=== PATIENT | female | born 1990 | race Hispanic/Latino ===

== ENCOUNTER 2024-10-14 19:10 | Emergency (ER) | payer MEDICAID ==
[~2024-10-14] VITALS: Ht 160 cm; Wt 77.1 kg
[2024-10-14 19:38] VITALS: BP 130/72; PULSE 78; RESP 16; TEMP 98.1; O2SAT 98
[2024-10-14] MEDS ORDERED: CLIN-141 PO (19:58)
--- NOTE | 2024-10-14 19:59 | ERN ---
General Chief Complaint: Tooth Ache/Pain Stated Complaint: INFECTION IN TOOTH Time Seen by MD: 19:10 History of Present Illness Initial Comments 34-year-old female 26 weeks comes in with missing part of her right distal molar. She is in pain but there is no swelling or redness. She has extremely poor dentition overall in his missing a good portion of her molar teeth on the left side of her mouth as well both upper and lower, as well as missing multiple teeth. The gum line itself appears normal. Allergies: Coded Allergies: No Known Allergies (Unverified Allergy, Unknown, 10/14/24) Past Medical History Past Medical History: No Pertinent History Medical History Other: Extremely poor dentition Past Surgical History: None Constitutional: (+) fever EENTM: (+) tooth pain; (-) eye pain, (-) blurred vision, (-) tearing, (-) double vision, (-) ear pain, (-) ear discharge, (-) nose pain, (-) nose congestion, (-) throat pain, (- ) Throat swelling, (-) mouth pain, (-) mouth swelling, (-) other documentation Respiratory: (-) cough, (-) orthopnea, (-) short of breath, (-) stridor, (-) wheezing, (-) other documentation Cardiovascular: (-) chest pain, (-) edema, (-) palpitations, (-) syncope, (-) dyspnea on exertion, (-) other documentation Gastrointestinal/Abdominal: (-) nausea, (-) vomiting, (-) diarrhea, (-) abdominal pain, (-) abdominal distention, (-) constipation, (-) rectal bleeding, (-) dark stool/melena, (-) other documentation Physical Exam General Appearance: (+) mild distress Orientation: (+) alert, (+) oriented x 3 Head/Face Trauma: No Eye: bilateral eye normal inspection, bilateral eye PERRL, bilateral eye EOMI Ear, Nose, Throat: (+) hearing grossly normal Ear, Nose, Throat Comment Right lower molar missing in the root there does seem to be some remnants of roots and a little food particle or purulent drainage. Neck: (+) normal inspection Respiratory: (+) chest non-tender Heart: (+) regular MDM Given patient's the only pain medication I can recommend is Tylenol. I will give her some Tylenol here. I will discharge her with a prescription for clindamycin. ED Course Vital Signs Date Time Temp Pulse Resp B/P (MAP) Pulse Ox O2 Delivery O2 Flow Rate FiO2 10/14/24 19:38 98.1 78 16 130/72 98 Room Air* 0 21 10/14/24 19:16 98.4 80 18 131/75 98 Room Air DX & DISP Disposition: Discharge Departure Impression: Primary Impression: Infected tooth Condition: Stable Scripts Clindamycin HCl (Clindamycin HCl) 300 Mg Capsule 1 CAP PO QID for 10 Days, #40 CAP 0 Refills Prov: MAXWELL CARRILLO MD 10/14/24 Additional Instructions: You have an infected right molar. I have sent a prescription for clindamycin to your pharmacy. Please see a dentist as in his possible. He will help clean out the remaining socket and drain any possible abscesses. Please come back to the emergency room if you get extreme swelling of your jaw with redness of the tissues of your skin in the redness is spreading. You can go to a pharmacy for Anbesol that is a topical anesthetic that will help with your pain. Referrals: SELF,REFERRAL (PCP) MAXWELL CARRILLO MD Oct 14, 2024 19:59
== END 2024-10-14 20:05 | disposition home or self-care (01) ==
LOC: EDH 19:10
DX: O26.892 Other specified pregnancy related conditions, second trimester (principal); K04.7 Periapical abscess without sinus; Z3A.26 26 weeks gestation of pregnancy
CPT/HCPCS: 99283